=== PATIENT | female | born 1950 | race Two or more races ===

== ENCOUNTER 2019-01-25 12:49 | Outpatient (CLI) | payer MEDICARE, MEDICAID ==
[~2019-01-25] VITALS: Ht 154.9 cm; Wt 59.0 kg
[2019-01-25] MEDS ORDERED: GLUCOTROL10 MG ORAL (14:49)
[2019-01-25] MEDS ORDERED: GLUCOVANCE PO (14:49)
[2019-01-25] MEDS ORDERED: TRAMADOL HCL50 MG ORAL (14:49)
[2019-01-25] MEDS ORDERED: AMLODIPINE BESYL5 MG ORAL (14:49)
[2019-01-25] MEDS ORDERED: HYDROCHLOROTHIA25 MG ORAL (14:49)
[2019-01-25 14:53] VITALS: BP 140/74
--- NOTE | 2019-01-25 21:00 | Consultation ---
DATE OF CONSULTATION: 01/25/2019 CONSULTING PHYSICIAN: Jaiden Garduno M.D. CHIEF COMPLAINT: Referral for screening colonoscopy. HISTORY OF PRESENT ILLNESS: This is a 68-year-old female with history of oral cancer going for surgery this , was referred to us for Dr. Kitchen for screening colonoscopy. PAST MEDICAL HISTORY: 1. History of CVA. 2. Hypertension. 3. Mouth CA. 4. Diabetes. PAST SURGICAL HISTORY: Hysterectomy. MEDICATIONS: Please see medication reconciliation list. FAMILY HISTORY: No family history of GI malignancies. SOCIAL HISTORY: The patient denies any tobacco, alcohol, or drug abuse. ALLERGIES: To Tylenol no. 3. REVIEW OF SYSTEMS: A 10-point review of systems was performed and pertinent positives in HPI. PHYSICAL EXAMINATION: VITAL SIGNS: Temperature 97.8, blood pressure 140/74, pulse is 90, respirations 20. HEENT: Normocephalic and atraumatic. Sclerae anicteric. The patient had evidence of swelling especially in the left cheekbone. NECK: Supple. No evidence of lymphadenopathy. CARDIOVASCULAR: Regular rate and rhythm. Plus S1 and S2. No obvious murmur. LUNGS: Clear to auscultation bilaterally. ABDOMEN: Positive bowel sounds. Soft and nontender. No rebound. No guarding. No peritoneal sign. EXTREMITIES: No cyanosis, no clubbing, no edema. ASSESSMENT AND PLAN: This is a 68-year-old female with oral cancer, pending surgery on , need for screening colonoscopy. At this time, the patient wants to wait after her oral surgery. We offered to have it done before, but she said now she is very anxious, she is very worried. She wants to get her surgery done first and then come back for colonoscopy. So, she was given the instruction for colonoscopy, the prep, and was told to call back when she is ready for colonoscopy. I want to thank Dr. Iftikhar Kitchen for this kind referral. Jaiden Garduno M.D. DR: MAURICE JOB#: [id number] CC: Iftikhar Kitchen M.D.; Fax#: [phone]
== END 2019-01-25 14:49 | disposition home or self-care (01) ==
LOC: PAN 12:49
DX: Z01.818 Encounter for other preprocedural examination (principal); I10 Essential (primary) hypertension; E11.9 Type 2 diabetes mellitus without complications; Z85.819 Personal history of malignant neoplasm of unspecified site of lip, oral cavity, and pharynx; Z90.710 Acquired absence of both cervix and uterus; Z88.8 Allergy status to other drugs, medicaments and biological substances
CPT/HCPCS: 99203